=== PATIENT | female | born 1970 | race Caucasian/White ===

== ENCOUNTER 2017-11-21 07:15 | Outpatient (CLI) | payer BC ==
[2017-11-21 10:01] LABS: BASOPHILS % (AUTO) 0.6 % (0.0-2.0); EOSINOPHILS % (AUTO) 1.7 % (0.0-6.0); HEMATOCRIT 43 % (33-45); HEMOGLOBIN 14.5 g/dL (11.5-14.8); LYMPHOCYTES # (AUTO) 3.5 /CMM (0.8-4.8); LYMPHOCYTES % (AUTO) 55.6 % (20.0-44.0); MEAN CORPUSCULAR HEMOGLOBIN 30 PG (26.0-33.0); MEAN CORPUSCULAR HGB CONC 34 g/dl (31.0-36.0); MEAN CORPUSCULAR VOLUME 88 fL (82-100); MONOCYTES # (AUTO) 0.3 /CMM (0.1-1.30); MONOCYTES % (AUTO) 5.6 % (2.0-12.0); NEUTROPHILS # (AUTO) 2.3 /CMM (1.8-8.9); NEUTROPHILS % (AUTO) 36.5 % (43.0-81.0); PLATELET COUNT (AUTO) 255 /CMM (150-450); RDW COEFFICIENT OF VARIATION 12.9 (11.5-15.0); RED BLOOD CELL COUNT(AUTO) 4.86 MIL/uL (4.0-5.2); WHITE BLOOD COUNT (AUTO) 6.2 K/uL (4.3-11.0)
[2017-11-21 10:04] LABS: APPEARANCE,URINE CLEAR (CLEAR); BILIRUBIN,URINE NEGATIVE (NEGATIVE); BLOOD, URINE 1+ Ery/uL (NEGATIVE); COLOR,URINE YELLOW (YELLOW); KETONES,URINE NEGATIVE (NEGATIVE); LEUKOCYTE ESTERASE ,URINE NEGATIVE (NEGATIVE); NITRITE, URINE NEGATIVE (NEGATIVE); PH,URINE 6.5 (5.0-8.0); PROTEIN,URINE NEGATIVE (NEGATIVE); UGLUCOSE NEGATIVE (NEGATIVE); UROBILINOGEN,URINE 0.2 EU/dL (0.2)
[2017-11-21 10:23] LABS: ALBUMIN 4.2 g/dL (3.4-5.0); BILIRUBIN,TOTAL 0.7 mg/dL (0.2-1.0); CALCIUM, SERUM 9.1 mg/dL (8.5-10.1); POTASSIUM 3.7 mmol/L (3.5-5.1)
[2017-11-21 10:27] LABS: C-REACTIVE PROTEIN 0.3 mg/dL (0.0-0.9); THYROID STIMULATING HORMONE 2.092 uIU/mL (0.358-3.74); URIC ACID 6.8 mg/dL (2.6-7.2)
[2017-11-21 10:34] LABS: BACTERIA,URINE None seen /HPF (None Seen); SQUAMOUS EPITHELIAL CELL,UR Few /HPF (None Seen); WBC,URINE NONE SEEN /HPF (0-3)
[2017-11-22 08:10] LABS: CANCER AG, 125 7.8 U/mL (0.0-38.1)
[2017-11-22 17:10] LABS: H. PYLORI AB IgA <9.0 units (0.0-8.9)
== END 2017-11-21 23:59 | disposition home or self-care (01) ==
LOC: LAB 07:15
PROVIDERS: ATTEND Legal Medicine
DX: Z00.01 Encounter for general adult medical examination with abnormal findings (principal); D25.2 Subserosal leiomyoma of uterus; N83.202 Unspecified ovarian cyst, left side; M79.606 Pain in leg, unspecified
CPT/HCPCS: 36415; 76856-TC; 80053-TC; 80061-TC; 81000-TC; 82306; 82728-TC; 82746; 83540-TC; 83880; 84439-TC; 84443-TC; 84550-TC; 85025-TC; 85652-TC; 86140-TC; 86304; 86431-TC; 86677

== ENCOUNTER 2017-11-27 09:31 | Outpatient (CLI) | payer BC | END 2017-11-27 23:59 | disposition home or self-care (01) | LOC: MRI 09:31 | PROVIDERS: ATTEND Legal Medicine | DX: S96.812A Strain of other specified muscles and tendons at ankle and foot level, left foot, initial encounter (principal); M72.2 Plantar fascial fibromatosis; X58.XXXA Exposure to other specified factors, initial encounter; Y93.89 Activity, other specified; Y92.89 Other specified places as the place of occurrence of the external cause; Y99.8 Other external cause status | CPT/HCPCS: 73718-TC ==

== ENCOUNTER 2017-11-29 13:13 | Outpatient (CLI) | payer BC | END 2017-11-29 23:59 | disposition home or self-care (01) | LOC: WOU 13:13 | PROVIDERS: ATTEND Podiatrist Foot & Ankle Surgery | DX: M62.17 Other rupture of muscle (nontraumatic), ankle and foot (principal); M72.2 Plantar fascial fibromatosis; M79.672 Pain in left foot | CPT/HCPCS: 99214; Z7610; G0463 ==

== ENCOUNTER 2017-12-27 12:59 | Outpatient (CLI) | payer BC | END 2017-12-27 23:59 | disposition home or self-care (01) | LOC: WOU 12:59 | PROVIDERS: ATTEND Podiatrist Foot & Ankle Surgery | DX: M66.872 Spontaneous rupture of other tendons, left ankle and foot (principal); M72.2 Plantar fascial fibromatosis | CPT/HCPCS: 99213; Z7610; G0463 ==

== ENCOUNTER 2018-01-24 09:10 | Outpatient (CLI) | payer BC ==
--- NOTE | 2018-01-24 10:54 | NUR ---
MRI was done
== END 2018-01-24 23:59 | disposition home or self-care (01) ==
LOC: MRI 09:10
PROVIDERS: ATTEND Podiatrist Foot & Ankle Surgery
DX: M72.2 Plantar fascial fibromatosis (principal)
CPT/HCPCS: 73718-TC

== ENCOUNTER 2018-08-19 10:07 | Outpatient (CLI) | payer BC ==
[~2018-08-19 10:07] MED LIST: CETI5TAB22 PO; VALE100C PO
== END 2018-08-19 23:59 | disposition home or self-care (01) ==
LOC: MRI 10:07
PROVIDERS: ATTEND Podiatrist
DX: M89.8X7 Other specified disorders of bone, ankle and foot (principal)
CPT/HCPCS: 73718-TC

== ENCOUNTER 2018-09-20 09:22 | Outpatient (CLI) | payer BC ==
[2018-09-20 12:10] LABS: APPEARANCE,URINE CLEAR (CLEAR); BILIRUBIN,URINE NEGATIVE (NEGATIVE); BLOOD, URINE 2+ Ery/uL (NEGATIVE); COLOR,URINE YELLOW (YELLOW); KETONES,URINE NEGATIVE (NEGATIVE); LEUKOCYTE ESTERASE ,URINE NEGATIVE (NEGATIVE); NITRITE, URINE NEGATIVE (NEGATIVE); PROTEIN,URINE NEGATIVE (NEGATIVE); UGLUCOSE NEGATIVE (NEGATIVE); UROBILINOGEN,URINE 0.2 EU/dL (0.2)
[2018-09-20 12:24] LABS: ALANINE AMINOTRANSFERASE 44 U/L (12-78); ALBUMIN 4.1 g/dL (3.4-5.0); ALKALINE PHOSPHATASE 81 U/L (46-116); ASPARTATE AMINOTRANSFERASE 21 U/L (15-37); BILIRUBIN,TOTAL 0.4 mg/dL (0.2-1.0); CALCIUM, SERUM 9.5 mg/dL (8.5-10.1); CARBON DIOXIDE 28 mmol/L (21-32); CHLORIDE 104 mmol/L (98-107); CREATININE 0.9 mg/dL (0.6-1.3); GLUCOSE 101 mg/dL (74-106); POTASSIUM 4.2 mmol/L (3.5-5.1); SODIUM SERUM 142 mmol/L (136-145); TOTAL PROTEIN, SERUM 8.1 g/dL (6.4-8.2); UREA NITROGEN, BLOOD 12 mg/dL (7-18)
[2018-09-20 12:28] LABS: BASOPHILS % (AUTO) 0.9 % (0.0-2.0); EOSINOPHILS % (AUTO) 1.8 % (0.0-6.0); HEMATOCRIT 44 % (33-45); LYMPHOCYTES # (AUTO) 2.9 /CMM (0.8-4.8); LYMPHOCYTES % (AUTO) 52.8 % (20.0-44.0); MEAN CORPUSCULAR HGB CONC 35 g/dl (31.0-36.0); MEAN CORPUSCULAR VOLUME 87 fL (82-100); MONOCYTES # (AUTO) 0.3 /CMM (0.1-1.30); MONOCYTES % (AUTO) 5.4 % (2.0-12.0); NEUTROPHILS # (AUTO) 2.2 /CMM (1.8-8.9); NEUTROPHILS % (AUTO) 39.1 % (43.0-81.0); PLATELET COUNT (AUTO) 248 /CMM (150-450); RED BLOOD CELL COUNT(AUTO) 5.01 MIL/uL (4.0-5.2); WHITE BLOOD COUNT (AUTO) 5.6 K/uL (4.3-11.0)
[2018-09-20 12:33] LABS: CHOLESTEROL 226 mg/dL (<200); FERRITIN 91 ng/mL (8-388); HDL CHOLESTEROL 45 mg/dL (40-60); LDL 161 mg/dL (0-99); THYROID STIMULATING HORMONE 2.572 uIU/mL (0.358-3.74); TRIGLYCERIDES 150 mg/dL (30-150); URIC ACID 7.5 mg/dL (2.6-7.2)
[2018-09-20 12:47] LABS: C-REACTIVE PROTEIN < 0.2 mg/dL (0.0-0.9)
[2018-09-20 13:24] LABS: BACTERIA,URINE Few /HPF (None Seen); WBC,URINE 0-2 /HPF (0-3)
[2018-09-20 13:51] LABS: IRON, SERUM 113 ug/dl (50-175); TOTAL IRON BINDING CAPACITY 377 ug/dl (250-450)
[2018-09-22 11:10] LABS: FOLIC ACID > 20.0 ng/mL (>3.0)
== END 2018-09-20 23:59 | disposition home or self-care (01) ==
LOC: MRI 09:22
PROVIDERS: ATTEND Legal Medicine
DX: M76.61 Achilles tendinitis, right leg (principal); M25.572 Pain in left ankle and joints of left foot
CPT/HCPCS: 36415; 73721-TC; 80053-TC; 80061-TC; 81000-TC; 82306; 82728-TC; 83540-TC; 84439-TC; 84443-TC; 84550-TC; 85025-TC; 85652-TC; 86140-TC

== ENCOUNTER 2018-09-26 10:00 | Outpatient (CLI) | payer BC | END 2018-09-26 23:59 | disposition home or self-care (01) | LOC: WOU 10:00 | PROVIDERS: ATTEND Podiatrist Foot & Ankle Surgery | DX: M76.822 Posterior tibial tendinitis, left leg (principal); M66.872 Spontaneous rupture of other tendons, left ankle and foot; M72.2 Plantar fascial fibromatosis | CPT/HCPCS: G0463 ==

== ENCOUNTER 2018-10-24 11:00 | Outpatient (CLI) | payer BC | END 2018-10-24 23:59 | disposition home or self-care (01) | LOC: WOU 11:00 | PROVIDERS: ATTEND Podiatrist Foot & Ankle Surgery | DX: M72.2 Plantar fascial fibromatosis (principal); M76.822 Posterior tibial tendinitis, left leg; M66.872 Spontaneous rupture of other tendons, left ankle and foot | CPT/HCPCS: G0463 ==

== ENCOUNTER 2019-01-22 15:18 | Outpatient (CLI) | payer BC | END 2019-01-22 23:59 | disposition home or self-care (01) | LOC: RAD 15:18 | PROVIDERS: ATTEND Legal Medicine | DX: R06.02 Shortness of breath (principal) | CPT/HCPCS: 71046 ==

== ENCOUNTER 2019-07-28 09:47 | Emergency (ER) | payer BC, OTHER ==
[~2019-07-28] VITALS: Ht 177.8 cm; Wt 90.7 kg
[2019-07-28 09:54] VITALS: BP 140/88
== END 2019-07-28 10:55 | disposition home or self-care (01) ==
LOC: ER 09:48
DX: R05 Cough (principal); R50.9 Fever, unspecified; Z20.828 Contact with and (suspected) exposure to other viral communicable diseases

== ENCOUNTER 2020-04-01 12:24 | Emergency (ER) | payer BC, OTHER ==
[~2020-04-01] VITALS: Ht 165.1 cm; Wt 70.3 kg
[2020-04-01 12:33] VITALS: BP 137/88
[2020-04-01] MEDS ORDERED: ACETAMINOPHEN ES 500 MG TABLET ONE (12:38)
[2020-04-01] MEDS ORDERED: ACETAMINOPHEN ES 500 MG TABLET PO ONE (13:00)
--- NOTE | 2020-04-03 09:06 | NUR ---
made aware of positive covid results.
== END 2020-04-01 13:38 | disposition home or self-care (01) ==
LOC: ER 12:30
DX: U07.1 COVID-19 (principal); R50.9 Fever, unspecified; M79.10 Myalgia, unspecified site
CPT/HCPCS: 71045; 99284; C9803; U0003

== ENCOUNTER 2021-01-05 09:00 | Outpatient (CLI) | payer BC, OTHER | END 2021-01-05 23:59 | disposition home or self-care (01) | LOC: CT 09:00 | PROVIDERS: ATTEND Legal Medicine | DX: J98.4 Other disorders of lung (principal) | CPT/HCPCS: 71250-TC ==

== ENCOUNTER 2021-01-26 10:54 | Outpatient (CLI) | payer BC, OTHER | END 2021-01-26 23:59 | disposition home or self-care (01) | LOC: US 10:54 | PROVIDERS: ATTEND Obstetrics & Gynecology | DX: D25.1 Intramural leiomyoma of uterus (principal); D25.2 Subserosal leiomyoma of uterus; N85.4 Malposition of uterus | CPT/HCPCS: 76856-TC ==

== ENCOUNTER 2021-03-16 09:05 | Outpatient (CLI) | payer BC, OTHER ==
[2021-03-16 10:58] LABS: BASOPHILS % (AUTO) 0.5 % (0.0-2.0); EOSINOPHILS % (AUTO) 1.7 % (0.0-6.0); HEMATOCRIT 41 % (33-45); HEMOGLOBIN 13.7 g/dL (11.5-14.8); LYMPHOCYTES # (AUTO) 2.2 K/uL (0.8-4.8); MEAN CORPUSCULAR HGB CONC 34 g/dl (31.0-36.0); MEAN CORPUSCULAR VOLUME 88 fL (82-100); MONOCYTES # (AUTO) 0.2 K/uL (0.1-1.30); MONOCYTES % (AUTO) 5.4 % (2.0-12.0); NEUTROPHILS % (AUTO) 44.4 % (43.0-81.0); PLATELET COUNT (AUTO) 246 K/uL (150-450); RED BLOOD CELL COUNT(AUTO) 4.62 MIL/uL (4.0-5.2); WHITE BLOOD COUNT (AUTO) 4.6 K/uL (4.3-11.0)
[2021-03-16 11:01] LABS: BILIRUBIN,URINE NEGATIVE (NEGATIVE); COLOR,URINE YELLOW (YELLOW); LEUKOCYTE ESTERASE ,URINE SMALL (NEGATIVE); NITRITE, URINE NEGATIVE (NEGATIVE); PROTEIN,URINE NEGATIVE (NEGATIVE); UGLUCOSE NEGATIVE (NEGATIVE); UROBILINOGEN,URINE 0.2 EU/dL (0.2)
[2021-03-16 11:58] LABS: THYROID STIMULATING HORMONE 2.605 uIU/mL (0.358-3.74); URIC ACID 6.7 mg/dL (2.6-7.2)
[2021-03-16 12:04] LABS: BACTERIA,URINE Rare /HPF (None Seen); SQUAMOUS EPITHELIAL CELL,UR Few /HPF (None Seen)
[2021-03-16 12:17] LABS: BILIRUBIN,TOTAL 0.5 mg/dL (0.2-1.0); CALCIUM, SERUM 8.4 mg/dL (8.5-10.1); POTASSIUM 3.9 mmol/L (3.5-5.1); TOTAL PROTEIN, SERUM 7.6 g/dL (6.4-8.2)
== END 2021-03-16 23:59 | disposition home or self-care (01) ==
LOC: CT 09:05
PROVIDERS: ATTEND Legal Medicine
DX: K57.30 Diverticulosis of large intestine without perforation or abscess without bleeding (principal); K59.00 Constipation, unspecified; N85.4 Malposition of uterus; M47.817 Spondylosis without myelopathy or radiculopathy, lumbosacral region; E11.9 Type 2 diabetes mellitus without complications; E03.9 Hypothyroidism, unspecified; D64.9 Anemia, unspecified; E55.9 Vitamin D deficiency, unspecified; E78.5 Hyperlipidemia, unspecified; R53.1 Weakness; Z00.00 Encounter for general adult medical examination without abnormal findings
CPT/HCPCS: 36415; 80053-TC; 80061-TC; 81001; 82150-TC; 82306; 82607-TC; 82728-TC; 83540-TC; 83690-TC; 84443-TC; 84550-TC; 85025-TC; 87086-TC

== ENCOUNTER 2021-05-30 08:43 | Outpatient (CLI) | payer BC, OTHER ==
[2021-05-30 09:25] LABS: BASOPHILS % (AUTO) 0.7 % (0.0-2.0); EOSINOPHILS % (AUTO) 2.8 % (0.0-6.0); HEMATOCRIT 40 % (33-45); HEMOGLOBIN 13.9 g/dL (11.5-14.8); LYMPHOCYTES # (AUTO) 2.5 K/uL (0.8-4.8); LYMPHOCYTES % (AUTO) 49.1 % (20.0-44.0); MEAN CORPUSCULAR HGB CONC 35 g/dl (31.0-36.0); MEAN CORPUSCULAR VOLUME 87 fL (82-100); MONOCYTES # (AUTO) 0.3 K/uL (0.1-1.30); MONOCYTES % (AUTO) 5.7 % (2.0-12.0); NEUTROPHILS # (AUTO) 2.1 K/uL (1.8-8.9); NEUTROPHILS % (AUTO) 41.7 % (43.0-81.0); PLATELET COUNT (AUTO) 258 K/uL (150-450); RED BLOOD CELL COUNT(AUTO) 4.62 MIL/uL (4.0-5.2); WHITE BLOOD COUNT (AUTO) 5.1 K/uL (4.3-11.0)
[2021-05-30 09:46] LABS: ALBUMIN 3.9 g/dL (3.4-5.0); BILIRUBIN,TOTAL 0.4 mg/dL (0.2-1.0); CALCIUM, SERUM 8.8 mg/dL (8.5-10.1); CREATININE 0.9 mg/dL (0.6-1.3); POTASSIUM 4.1 mmol/L (3.5-5.1); TOTAL PROTEIN, SERUM 7.8 g/dL (6.4-8.2)
[2021-06-02 09:08] LABS: HEPATITIS Be AB Negative (Negative)
== END 2021-05-30 23:59 | disposition home or self-care (01) ==
LOC: US 08:43
PROVIDERS: ATTEND Internal Medicine Gastroenterology
DX: K76.89 Other specified diseases of liver (principal); R79.1 Abnormal coagulation profile; R97.8 Other abnormal tumor markers
CPT/HCPCS: 36415; 76700-TC; 80053-TC; 82150-TC; 83690-TC; 85025-TC; 85730-TC; 86704; 86706; 86707; 86803; 87340; 87350

== ENCOUNTER 2022-06-21 07:19 | Outpatient (CLI) | payer BC, OTHER ==
[2022-06-21 11:58] LABS: BASOPHILS % (AUTO) 0.5 % (0.0-2.0); HEMATOCRIT 42 % (33-45); HEMOGLOBIN 13.9 g/dL (11.5-14.8); LYMPHOCYTES # (AUTO) 2.5 K/uL (0.8-4.8); LYMPHOCYTES % (AUTO) 44.5 % (20.0-44.0); MEAN CORPUSCULAR HGB CONC 33 g/dl (31.0-36.0); MEAN CORPUSCULAR VOLUME 86 fL (82-100); MONOCYTES # (AUTO) 0.4 K/uL (0.1-1.30); MONOCYTES % (AUTO) 6.4 % (2.0-12.0); NEUTROPHILS # (AUTO) 2.7 K/uL (1.8-8.9); NEUTROPHILS % (AUTO) 47.6 % (43.0-81.0); PLATELET COUNT (AUTO) 278 K/uL (150-450); RED BLOOD CELL COUNT(AUTO) 4.81 MIL/uL (4.0-5.2); WHITE BLOOD COUNT (AUTO) 5.7 K/uL (4.3-11.0)
[2022-06-21 12:05] LABS: BILIRUBIN,URINE NEGATIVE (NEGATIVE); COLOR,URINE YELLOW (YELLOW); LEUKOCYTE ESTERASE ,URINE 1+ (NEGATIVE); NITRITE, URINE NEGATIVE (NEGATIVE); PROTEIN,URINE NEGATIVE (NEGATIVE); UGLUCOSE NEGATIVE (NEGATIVE); UROBILINOGEN,URINE 0.2 EU/dL (0.2)
[2022-06-21 12:31] LABS: CHOLESTEROL 216 mg/dL (<200); HDL CHOLESTEROL 43 mg/dL (40-60); LDL 159 mg/dL (0-99); THYROID STIMULATING HORMONE 1.801 uIU/mL (0.358-3.74); TRIGLYCERIDES 134 mg/dL (30-150)
[2022-06-21 12:45] LABS: ALANINE AMINOTRANSFERASE 37 U/L (12-78); ALKALINE PHOSPHATASE 76 U/L (46-116); ASPARTATE AMINOTRANSFERASE 24 U/L (15-37); BILIRUBIN,TOTAL 0.5 mg/dL (0.2-1.0); CALCIUM, SERUM 9.1 mg/dL (8.5-10.1); CARBON DIOXIDE 32 mmol/L (21-32); CHLORIDE 106 mmol/L (98-107); GLUCOSE 100 mg/dL (74-106); POTASSIUM 4.2 mmol/L (3.5-5.1); SODIUM SERUM 141 mmol/L (136-145); TOTAL PROTEIN, SERUM 7.8 g/dL (6.4-8.2); UREA NITROGEN, BLOOD 10 mg/dL (7-18)
[2022-06-21 12:49] LABS: C-REACTIVE PROTEIN < 0.2 mg/dL (0.0-0.9)
[2022-06-21 13:03] LABS: IRON, SERUM 91 ug/dl (50-175); TOTAL IRON BINDING CAPACITY 342 ug/dl (250-450)
[2022-06-21 13:28] LABS: BACTERIA,URINE Few /HPF (None Seen); SQUAMOUS EPITHELIAL CELL,UR Few /HPF (None Seen)
== END 2022-06-21 23:59 | disposition home or self-care (01) ==
LOC: LAB 07:19
PROVIDERS: ATTEND Legal Medicine
DX: Z00.00 Encounter for general adult medical examination without abnormal findings (principal); E11.9 Type 2 diabetes mellitus without complications; I10 Essential (primary) hypertension; V70.0XXA Driver of bus injured in collision with pedestrian or animal in nontraffic accident, initial encounter
CPT/HCPCS: 36415; 80053-TC; 80061-TC; 81001; 82306; 82607-TC; 83540-TC; 84439-TC; 84443-TC; 85025-TC; 85652-TC; 86140-TC; 86431-TC; 87086-TC

== ENCOUNTER 2022-08-09 08:55 | Outpatient (CLI) | payer BC | END 2022-08-09 23:59 | disposition home or self-care (01) | LOC: US 08:55 | PROVIDERS: ATTEND Legal Medicine | DX: M25.461 Effusion, right knee (principal); N88.8 Other specified noninflammatory disorders of cervix uteri; R10.2 Pelvic and perineal pain; M25.561 Pain in right knee; D25.9 Leiomyoma of uterus, unspecified | CPT/HCPCS: 73721-TC; 76856-TC ==

== ENCOUNTER 2023-07-07 17:53 | Emergency (ER) | payer BC ==
[~2023-07-07] VITALS: Ht 177.8 cm; Wt 90.7 kg
[2023-07-07] MEDS ORDERED: ACETAMINOPHEN 325 MG TABLET ONE (18:35)
[2023-07-07] MEDS ORDERED: CYCLOBENZAPRINE 10 MG TABLET ONE (18:35)
[2023-07-07] MEDS: ACETAMINOPHEN 325 MG TABLET PO ONE (18:52)
[2023-07-07] MEDS: CYCLOBENZAPRINE 10 MG TABLET PO ONE (18:52)
[2023-07-07] MEDS ORDERED: ACET-73 PO (19:42)
[2023-07-07] MEDS ORDERED: CYCL5TAB PO (19:42)
[2023-07-07 20:38] VITALS: BP 127/68; TEMP 98.4; O2SAT 98
== END 2023-07-07 20:38 | disposition home or self-care (01) ==
LOC: ER 17:53
DX: S13.9XXA Sprain of joints and ligaments of unspecified parts of neck, initial encounter (principal); S30.0XXA Contusion of lower back and pelvis, initial encounter; W07.XXXA Fall from chair, initial encounter; Y93.89 Activity, other specified; Y92.89 Other specified places as the place of occurrence of the external cause; Y99.8 Other external cause status
CPT/HCPCS: 72170-TC

== ENCOUNTER 2023-12-11 09:57 | Outpatient (CLI) | payer BC, OTHER ==
[~2023-12-11 09:57] MED LIST changes: +ACET-73 PO; +CYCL5TAB PO
== END 2023-12-11 23:59 | disposition home or self-care (01) ==
LOC: WOU 09:57
PROVIDERS: ATTEND Podiatrist Foot & Ankle Surgery
DX: G57.62 Lesion of plantar nerve, left lower limb (principal); G57.53 Tarsal tunnel syndrome, bilateral lower limbs; M77.41 Metatarsalgia, right foot; M79.672 Pain in left foot; M79.671 Pain in right foot
CPT/HCPCS: G0463